=== PATIENT | male | born 1940 | race Caucasian/White ===

== ENCOUNTER 2018-02-04 16:37 | Inpatient (IN) | payer MEDICARE, OTHER ==
[~2018-02-04] VITALS: Ht 182.9 cm; Wt 76.2 kg
[~2018-02-04 16:37] MED LIST: AEC81 PO; ATOR20TA65 PO; CARV25TA PO; FURO40TA5 PO; LISI40TA4 PO; METF-444 PO; WARF-67 PO; WARF1TAB83 PO
[2018-02-04 17:20] LABS: BASOPHILS % (AUTO) 0.6 % (0.0-5.0); EOSINOPHILS % (AUTO) 0.5 % (0.0-8.0); HEMATOCRIT 33.2 % (42-54); LYMPHOCYTES % (AUTO) 30.1 % (21.0-51.0); MEAN CORPUSCULAR HEMOGLOBIN 34.8 pg (27.0-33.0); MEAN CORPUSCULAR HGB CONC 34.8 g/dL (32.0-36.0); MEAN CORPUSCULAR VOLUME 99.8 fL (79-99); MONOCYTES % (AUTO) 8.8 % (3.0-13.0); NUCLEATED RED BLOOD CELLS 0.1 % (0.0-0.19); PLATELET COUNT (AUTO) 120 K/uL (130-400); RED BLOOD CELL COUNT(AUTO) 3.33 MIL/uL (4.50-6.20); RED CELL DISTRIBUTION WIDTH 15.4 % (11.0-15.5); WHITE BLOOD COUNT (AUTO) 3.6 K/uL (4.8-10.8)
[2018-02-04 17:34] LABS: PARTIAL THROMBOPLASTIN TIME 38.8 SEC (26.3-35.5)
[2018-02-04 17:55] LABS: B-TYPE NATRIURETIC PEPTIDE 187 pg/mL (0-100)
[2018-02-04 18:06] LABS: CARBON DIOXIDE 22 mmol/L (21-32); CHLORIDE 94 mmol/L (101-111); CREATININE 1.4 mg/dL (0.5-1.5); GLOMERULAR FILTR. RATE CALC 52 mL/min (>60); GLUCOSE,RANDOM 117 mg/dL (70-105); POTASSIUM 4.5 mmol/L (3.5-5.1); SODIUM SERUM 126 mmol/L (136-145); UREA NITROGEN, BLOOD 13 mg/dL (7-18)
[2018-02-04 18:08] LABS: PROTHROMBIN TIME 38.7 SEC (9.6-11.6)
[2018-02-04 18:09] LABS: INR 3.78 (0.85-1.15)
[2018-02-04 18:10] LABS: ALANINE AMINOTRANSFERASE 154 U/L (12-78); ALBUMIN 2.4 g/dL (3.5-5.0); ASPARTATE AMINOTRANSFERASE 365 U/L (10-37); BILIRUBIN,TOTAL 1.6 mg/dL (0.2-1.0); CREATINE KINASE, TOTAL 88 U/L (21-232)
[2018-02-04 18:12] LABS: ALCOHOL, BLOOD < 3 mg/dL (0-10); LIPASE 34 U/L (114-286)
[2018-02-04 20:29] LABS: APPEARANCE,URINE Clear (CLEAR); BILIRUBIN,URINE Negative (NEGATIVE); COLOR,URINE Yellow (YELLOW); GLUCOSE, URINE (UA) Negative (NEGATIVE); KETONES,URINE 15 mg/dL (NEGATIVE); LEUKOCYTE ESTERASE ,URINE Negative (NEGATIVE); NITRATE,URINE Negative (NEGATIVE); OCCULT BLOOD,URINE Negative (NEGATIVE); PROTEIN,URINE Negative (NEGATIVE)
[2018-02-04 20:37] LABS: AMPHET/METH SCREEN,URINE NEGATIVE (NEGATIVE); BARBITURATE SCREEN, URINE NEGATIVE (NEGATIVE); BENZODIAZEPINES SCREEN,URINE NEGATIVE (NEGATIVE); CANNABINOID SCREEN,URINE NEGATIVE (NEGATIVE); COCAINE SCREEN,URINE NEGATIVE (NEGATIVE); OPIATE SCREEN,URINE NEGATIVE (NEGATIVE); PHENCYCLIDINE SCREEN,URINE NEGATIVE (NEGATIVE)
[2018-02-04] MEDS ORDERED: CARVEDILOL 25 MG TABLET PO SCH (21:00)
[2018-02-04] MEDS: FUROSEMIDE 40 MG TABLET PO SCH (21:00)
[2018-02-04] MEDS ORDERED: SODIUM CHLORIDE 0.9% 1000ML 1,000 ML IV ONE (21:20)
[2018-02-04] MEDS: CARVEDILOL 12.5 MG TABLET PO SCH (22:00)
[2018-02-05] VITALS (8 sets, daily range): BP systolic 80–132; BP diastolic 55–80
[2018-02-05] MEDS ORDERED: ONDANSETRON HCL 4 MG/2 ML VIAL IVP PRN (04:00)
[2018-02-05] MEDS: SODIUM CHLORIDE 0.9% 1000ML 1,000 ML IV SCH ×6 (04:00→20:30)
[2018-02-05] MEDS ORDERED: LIDOCAINE HCL-MPF 1% 2ML VIAL IVP PRN (05:00)
[2018-02-05] MEDS ORDERED: POTASSIUM CHLORIDE 10% ELIXIR 20 MEQ/15 ML UDCUP PO PRN (05:00)
[2018-02-05] MEDS ORDERED: POTASSIUM CHLORIDE 20MEQ/100ML 100 ML IV PRN (05:00)
[2018-02-05] MEDS: MAGNESIUM 2GM PREMIX 50ML 50 ML IV PRN (06:18)
[2018-02-05] MEDS: INSULIN HUMULIN R 100 UNIT/ML 3ML SQ SCH ×4 (06:46→21:00)
[2018-02-05] MEDS ORDERED: LISI-617 PO (07:35)
[2018-02-05] MEDS ORDERED: MAGN400C PO (07:36)
[2018-02-05] MEDS ORDERED: SPIR25TA6 PO (07:43)
[2018-02-05] MEDS ORDERED: CARV25TA PO (07:43)
[2018-02-05] MEDS ORDERED: CYAN-35 PO (07:45)
[2018-02-05] MEDS ORDERED: CALC600T12 PO (07:45)
[2018-02-05] MEDS: METFORMIN HCL 500 MG TABLET PO SCH ×2 (08:00→09:37)
[2018-02-05] MEDS: CARVEDILOL 12.5 MG TABLET PO SCH ×3 (09:00→23:43)
[2018-02-05] MEDS ORDERED: LISINOPRIL 40 MG TABLET PO SCH (09:00)
[2018-02-05] MEDS: FUROSEMIDE 40 MG TABLET PO SCH ×3 (09:00→23:44)
[2018-02-05] MEDS: ATORVASTATIN CALCIUM 20 MG TABLET PO SCH (09:37)
[2018-02-05] MEDS: LISINOPRIL 2.5 MG TABLET PO SCH (10:21)
[2018-02-05] MEDS: LORAZEPAM 2 MG/ML 1 ML VIAL IVP SCH (23:43)
[2018-02-06] VITALS (10 sets, daily range): BP systolic 67–121; BP diastolic 37–77
[2018-02-06] MEDS: SODIUM CHLORIDE 0.9% 1000ML 1,000 ML IV SCH ×2 (04:00→04:30)
[2018-02-06 05:29] LABS: HEMATOCRIT 33.7 % (42-54); MEAN CORPUSCULAR HEMOGLOBIN 34.9 pg (27.0-33.0); MEAN CORPUSCULAR HGB CONC 34.6 g/dL (32.0-36.0); MEAN CORPUSCULAR VOLUME 100.8 fL (79-99); PLATELET COUNT (AUTO) 85 K/uL (130-400); RED BLOOD CELL COUNT(AUTO) 3.35 MIL/uL (4.50-6.20); RED CELL DISTRIBUTION WIDTH 15.2 % (11.0-15.5); WHITE BLOOD COUNT (AUTO) 3.3 K/uL (4.8-10.8)
[2018-02-06 05:39] LABS: BASOPHILS % (MANUAL) 1 % (0-2); LYMPHOCYTES % (MANUAL) 32 % (22-44); MAN.DIFF COMMENT-IMPRESSION MANUAL DIFFERENTIAL; MONOCYTES % (MANUAL) 4 % (2-9); SEGMENTED NEUTROPHILS % 63 % (40-70)
[2018-02-06 05:40] LABS: PLATELET MORPHOLOGY COMMENT DECREASED
[2018-02-06 05:50] LABS: ALBUMIN 2.2 g/dL (3.5-5.0); BILIRUBIN,TOTAL 1.3 mg/dL (0.2-1.0); CREATININE 1.3 mg/dL (0.5-1.5); MAGNESIUM 1.3 mg/dL (1.80-2.40); POTASSIUM 3.8 mmol/L (3.5-5.1); T4 (THYROXINE) 7.7 mcg/dL (4.7-13.3); THYROID STIMULATING HORMONE 4.53 uIU/mL (0.36-3.74); TOTAL PROTEIN, SERUM 5.6 g/dL (6.0-8.3)
[2018-02-06] MEDS: INSULIN HUMULIN R 100 UNIT/ML 3ML SQ SCH ×4 (06:25→23:08)
[2018-02-06] MEDS: METFORMIN HCL 500 MG TABLET PO SCH ×2 (08:00→09:20)
[2018-02-06] MEDS: CARVEDILOL 12.5 MG TABLET PO SCH (09:20)
[2018-02-06] MEDS: LISINOPRIL 2.5 MG TABLET PO SCH (09:20)
[2018-02-06] MEDS: FUROSEMIDE 40 MG TABLET PO SCH (09:20)
[2018-02-06] MEDS: ATORVASTATIN CALCIUM 20 MG TABLET PO SCH (09:21)
[2018-02-06] MEDS: POTASSIUM CHLORIDE 20 MEQ ERTAB PO PRN ×2 (15:13→17:41)
[2018-02-06 15:25] LABS: TROPONIN I 0.08 ng/mL (0.00-0.06)
[2018-02-06] MEDS: MAGNESIUM 2GM PREMIX 50ML 50 ML IV PRN (19:01)
[2018-02-06] MEDS: MIRTAZAPINE 15 MG TABLET PO SCH (23:08)
[2018-02-06] MEDS: LORAZEPAM 2 MG/ML 1 ML VIAL IVP SCH (23:09)
[2018-02-07] VITALS (8 sets, daily range): BP systolic 83–118; BP diastolic 53–71
[2018-02-07 05:06] LABS: BASOPHILS % (AUTO) 0.7 % (0.0-5.0); EOSINOPHILS % (AUTO) 1.8 % (0.0-8.0); HEMATOCRIT 34.1 % (42-54); LYMPHOCYTES % (AUTO) 36.3 % (21.0-51.0); MEAN CORPUSCULAR HEMOGLOBIN 33.8 pg (27.0-33.0); MEAN CORPUSCULAR HGB CONC 33.7 g/dL (32.0-36.0); MEAN CORPUSCULAR VOLUME 100.3 fL (79-99); MONOCYTES % (AUTO) 9.3 % (3.0-13.0); NEUTROPHILS % (AUTO) 51.9 % (40.0-77.0); NUCLEATED RED BLOOD CELLS 0.1 % (0.0-0.19); PLATELET COUNT (AUTO) 62 K/uL (130-400); RED CELL DISTRIBUTION WIDTH 15.3 % (11.0-15.5); WHITE BLOOD COUNT (AUTO) 3.6 K/uL (4.8-10.8)
[2018-02-07 05:18] LABS: CREATININE 1.2 mg/dL (0.5-1.5); POTASSIUM 3.7 mmol/L (3.5-5.1)
[2018-02-07] MEDS: INSULIN HUMULIN R 100 UNIT/ML 3ML SQ SCH ×4 (06:26→21:00)
[2018-02-07] MEDS: SODIUM CHLORIDE 0.9% 1000ML 1,000 ML IV SCH ×2 (06:26→18:08)
[2018-02-07] MEDS: LISINOPRIL 2.5 MG TABLET PO SCH (09:54)
[2018-02-07] MEDS: ATORVASTATIN CALCIUM 20 MG TABLET PO SCH (09:54)
[2018-02-07] MEDS: SPIRONOLACTONE 25 MG TAB PO SCH (09:54)
[2018-02-07] MEDS: CARVEDILOL 6.25 MG TABLET PO SCH ×2 (09:54→22:37)
[2018-02-07] MEDS: FUROSEMIDE 20 MG TABLET PO SCH (09:54)
[2018-02-07] MEDS: MIRTAZAPINE 15 MG TABLET PO SCH (22:32)
[2018-02-07] MEDS: LORAZEPAM 2 MG/ML 1 ML VIAL IVP SCH (22:34)
[2018-02-08] VITALS (7 sets, daily range): BP systolic 69–115; BP diastolic 49–73
[2018-02-08] MEDS: SODIUM CHLORIDE 0.9% 1000ML 1,000 ML IV SCH ×2 (05:35→20:57)
[2018-02-08 05:59] LABS: BASOPHILS % (AUTO) 1.2 % (0.0-5.0); EOSINOPHILS % (AUTO) 2.6 % (0.0-8.0); HEMATOCRIT 33.4 % (42-54); LYMPHOCYTES % (AUTO) 38.1 % (21.0-51.0); MEAN CORPUSCULAR HEMOGLOBIN 34.6 pg (27.0-33.0); MEAN CORPUSCULAR HGB CONC 34.2 g/dL (32.0-36.0); MEAN CORPUSCULAR VOLUME 101.2 fL (79-99); MONOCYTES % (AUTO) 11.3 % (3.0-13.0); NEUTROPHILS % (AUTO) 46.8 % (40.0-77.0); NUCLEATED RED BLOOD CELLS 0.1 % (0.0-0.19); PLATELET COUNT (AUTO) 68 K/uL (130-400); RED CELL DISTRIBUTION WIDTH 15.2 % (11.0-15.5); WHITE BLOOD COUNT (AUTO) 3.4 K/uL (4.8-10.8)
[2018-02-08 06:12] LABS: CREATININE 1.3 mg/dL (0.5-1.5); POTASSIUM 3.5 mmol/L (3.5-5.1)
[2018-02-08] MEDS: INSULIN HUMULIN R 100 UNIT/ML 3ML SQ SCH ×4 (06:57→20:57)
[2018-02-08] MEDS: LISINOPRIL 2.5 MG TABLET PO SCH (09:28)
[2018-02-08] MEDS: SPIRONOLACTONE 25 MG TAB PO SCH (09:29)
[2018-02-08] MEDS: ATORVASTATIN CALCIUM 20 MG TABLET PO SCH (09:29)
[2018-02-08] MEDS: FUROSEMIDE 20 MG TABLET PO SCH (09:29)
[2018-02-08] MEDS: CARVEDILOL 6.25 MG TABLET PO SCH (09:30)
[2018-02-08] MEDS: LORAZEPAM 2 MG/ML 1 ML VIAL IVP SCH (20:56)
[2018-02-08] MEDS: MIRTAZAPINE 15 MG TABLET PO SCH (20:56)
[2018-02-09 03:22] VITALS: BP 124/75
[2018-02-09 05:23] LABS: BASOPHILS % (AUTO) 0.8 % (0.0-5.0); EOSINOPHILS % (AUTO) 2.7 % (0.0-8.0); HEMATOCRIT 35.1 % (42-54); LYMPHOCYTES % (AUTO) 37.1 % (21.0-51.0); MEAN CORPUSCULAR HEMOGLOBIN 33.8 pg (27.0-33.0); MEAN CORPUSCULAR HGB CONC 33.4 g/dL (32.0-36.0); MONOCYTES % (AUTO) 10.4 % (3.0-13.0); NUCLEATED RED BLOOD CELLS 0.1 % (0.0-0.19); PLATELET COUNT (AUTO) 66 K/uL (130-400); RED BLOOD CELL COUNT(AUTO) 3.48 MIL/uL (4.50-6.20); RED CELL DISTRIBUTION WIDTH 15.6 % (11.0-15.5); WHITE BLOOD COUNT (AUTO) 4.6 K/uL (4.8-10.8)
[2018-02-09 05:37] LABS: CREATININE 1.3 mg/dL (0.5-1.5); POTASSIUM 3.4 mmol/L (3.5-5.1)
[2018-02-09] MEDS: INSULIN HUMULIN R 100 UNIT/ML 3ML SQ SCH ×4 (06:06→21:00)
[2018-02-09 07:00] VITALS: BP 116/67
[2018-02-09] MEDS: ATORVASTATIN CALCIUM 20 MG TABLET PO SCH (08:37)
[2018-02-09] MEDS: SPIRONOLACTONE 25 MG TAB PO SCH (08:37)
[2018-02-09] MEDS: FUROSEMIDE 20 MG TABLET PO SCH (08:38)
[2018-02-09] MEDS: MAGNESIUM 2GM PREMIX 50ML 50 ML IV PRN (08:39)
[2018-02-09 09:27] LABS: INR 1.23 (0.85-1.15); PARTIAL THROMBOPLASTIN TIME 27.5 SEC (26.3-35.5); PROTHROMBIN TIME 12.9 SEC (9.6-11.6)
[2018-02-09] MEDS: SODIUM CHLORIDE 0.9% 1000ML 1,000 ML IV SCH ×2 (10:08→21:47)
[2018-02-09 11:24] VITALS: BP_SYST 107; BP_SYST 128; BP_SYST 94; BP_DIAS 58; BP_DIAS 72; BP_DIAS 75
[2018-02-09 13:32] LABS: CREATININE 1.2 mg/dL (0.5-1.5); MAGNESIUM 1.4 mg/dL (1.80-2.40); POTASSIUM 3.5 mmol/L (3.5-5.1)
[2018-02-09 15:00] VITALS: BP 113/90
[2018-02-09 19:11] VITALS: BP 114/64
[2018-02-09] MEDS: MIRTAZAPINE 15 MG TABLET PO SCH (21:47)
[2018-02-09] MEDS: LORAZEPAM 2 MG/ML 1 ML VIAL IVP SCH (21:48)
[2018-02-09 23:20] VITALS: BP_SYST 130; BP_SYST 131; BP_SYST 144; BP_DIAS 73; BP_DIAS 78; BP_DIAS 84
[2018-02-10 03:23] VITALS: BP 130/73
[2018-02-10] MEDS: INSULIN HUMULIN R 100 UNIT/ML 3ML SQ SCH ×4 (05:44→22:07)
[2018-02-10 05:48] LABS: BASOPHILS % (AUTO) 0.6 % (0.0-5.0); EOSINOPHILS % (AUTO) 3.3 % (0.0-8.0); LYMPHOCYTES % (AUTO) 36.3 % (21.0-51.0); MEAN CORPUSCULAR HEMOGLOBIN 34.4 pg (27.0-33.0); MEAN CORPUSCULAR HGB CONC 34.4 g/dL (32.0-36.0); MEAN CORPUSCULAR VOLUME 100.2 fL (79-99); MONOCYTES % (AUTO) 9.6 % (3.0-13.0); NEUTROPHILS % (AUTO) 50.2 % (40.0-77.0); PLATELET COUNT (AUTO) 98 K/uL (130-400); RED BLOOD CELL COUNT(AUTO) 3.49 MIL/uL (4.50-6.20); RED CELL DISTRIBUTION WIDTH 15.3 % (11.0-15.5); WHITE BLOOD COUNT (AUTO) 5.5 K/uL (4.8-10.8)
[2018-02-10 05:57] LABS: CREATININE 1.1 mg/dL (0.5-1.5); POTASSIUM 3.3 mmol/L (3.5-5.1)
[2018-02-10 07:59] VITALS: BP 130/76
[2018-02-10] MEDS: SPIRONOLACTONE 25 MG TAB PO SCH (09:15)
[2018-02-10] MEDS: FUROSEMIDE 20 MG TABLET PO SCH (09:15)
[2018-02-10] MEDS: ATORVASTATIN CALCIUM 20 MG TABLET PO SCH (09:15)
[2018-02-10 11:46] VITALS: BP 131/105
[2018-02-10] MEDS: SODIUM CHLORIDE 0.9% 1000ML 1,000 ML IV SCH ×2 (12:48→23:37)
[2018-02-10 16:00] VITALS: BP 101/59
[2018-02-10 21:05] VITALS: BP 101/56
[2018-02-10] MEDS: MIRTAZAPINE 15 MG TABLET PO SCH (21:51)
[2018-02-10] MEDS: LORAZEPAM 2 MG/ML 1 ML VIAL IVP SCH (21:55)
[2018-02-11] VITALS: BP 133/75
[2018-02-11] MEDS ORDERED: DEXTROSE 50%-WATER 50 ML DISP.SYRIN IV ONE (01:43)
[2018-02-11] MEDS: INSULIN HUMULIN R 100 UNIT/ML 3ML SQ SCH ×2 (06:56→11:30)
[2018-02-11 08:00] VITALS: BP 134/72
[2018-02-11] MEDS: FUROSEMIDE 20 MG TABLET PO SCH (08:53)
[2018-02-11] MEDS: ATORVASTATIN CALCIUM 20 MG TABLET PO SCH (08:53)
[2018-02-11] MEDS: SPIRONOLACTONE 25 MG TAB PO SCH (08:53)
[2018-02-11 12:00] VITALS: BP 113/71
[2018-02-11 16:00] VITALS: BP 102/58
[2018-02-11] MEDS ORDERED: FURO20TA6 PO (16:39)
[2018-02-11] MEDS ORDERED: CARV6.2579 PO (16:39)
[2018-02-11] MEDS ORDERED: SPIR25TA PO (16:39)
== END 2018-02-11 18:53 | disposition home or self-care (01) | DRG 312 ==
LOC: EDH 16:37 → EDHIP 19:30 → 4AH 02-05 02:48 → 3AH 02-05 20:42
PROVIDERS: ADMIT Hospitalist; ATTEND Hospitalist
DX: I95.1 Orthostatic hypotension (principal); E87.1 Hypo-osmolality and hyponatremia; I50.22 Chronic systolic (congestive) heart failure; E44.1 Mild protein-calorie malnutrition; I44.2 Atrioventricular block, complete; R29.6 Repeated falls; I48.2 Chronic atrial fibrillation; E83.42 Hypomagnesemia; E11.65 Type 2 diabetes mellitus with hyperglycemia; I25.10 Atherosclerotic heart disease of native coronary artery without angina pectoris; I11.0 Hypertensive heart disease with heart failure; M48.061 Spinal stenosis, lumbar region without neurogenic claudication; R00.1 Bradycardia, unspecified; Z66 Do not resuscitate; E87.6 Hypokalemia; G31.9 Degenerative disease of nervous system, unspecified; I25.5 Ischemic cardiomyopathy; N28.1 Cyst of kidney, acquired; Z60.2 Problems related to living alone; Z68.22 Body mass index [BMI] 22.0-22.9, adult; Z79.01 Long term (current) use of anticoagulants; Z95.5 Presence of coronary angioplasty implant and graft; Z95.0 Presence of cardiac pacemaker; Z82.5 Family history of asthma and other chronic lower respiratory diseases; Z82.0 Family history of epilepsy and other diseases of the nervous system
CPT/HCPCS: 36415; 70450; 71045; 76705; 80048; 80053; 80305; 81003; 82270; 82550; 82607; 82947; 82948; 83690; 83735; 83874; 83880; 84436; 84443; 84480; 84484; 85025; 85610; 85730; 93005; 93306; 97039; G0480; J1815; J2060; J2405; J3475; J7030; J7070

== ENCOUNTER 2018-12-07 20:11 | Inpatient (IN) | payer OTHER ==
[~2018-12-07] VITALS: Ht 180.3 cm; Wt 67.6 kg
[~2018-12-07 20:11] MED LIST changes: +APIX5TAB PO; +CALC600T12 PO; +CARV12.511 PO; -CARV25TA PO; +CARV6.2579 PO; +CYAN-35 PO; +FURO20TA6 PO; +LEVO500T89 PO; +LISI2.5T2 PO; -LISI40TA4 PO; +MAGN400C PO; +SPIR25TA PO; +SPIR25TA6 PO; -WARF-67 PO; -WARF1TAB83 PO
[2018-12-07 20:35] LABS: BASOPHILS % (AUTO) 0.4 % (0.0-5.0); EOSINOPHILS % (AUTO) 0.1 % (0.0-8.0); HEMATOCRIT 36.3 % (42-54); LYMPHOCYTES % (AUTO) 15.6 % (21.0-51.0); MEAN CORPUSCULAR HEMOGLOBIN 33.2 pg (27.0-33.0); MEAN CORPUSCULAR HGB CONC 35.1 g/dL (32.0-36.0); MEAN CORPUSCULAR VOLUME 94.8 fL (79-99); MONOCYTES % (AUTO) 7.2 % (3.0-13.0); NEUTROPHILS % (AUTO) 76.7 % (40.0-77.0); PLATELET COUNT (AUTO) 130 K/uL (130-400); RED BLOOD CELL COUNT(AUTO) 3.83 MIL/uL (4.50-6.20); WHITE BLOOD COUNT (AUTO) 10.1 K/uL (4.8-10.8)
[2018-12-07 20:50] LABS: B-TYPE NATRIURETIC PEPTIDE 107 pg/mL (0-100)
[2018-12-07 21:11] LABS: ALBUMIN 3.2 g/dL (3.5-5.0); BILIRUBIN,TOTAL 1.3 mg/dL (0.2-1.0); CREATININE 2.1 mg/dL (0.5-1.5); POTASSIUM 5.7 mmol/L (3.5-5.1); TOTAL PROTEIN, SERUM 7.2 g/dL (6.0-8.3)
[2018-12-07] MEDS ORDERED: SODIUM CHLORIDE 0.9% 1000ML 1,000 ML IV ONE (21:27)
[2018-12-07] MEDS ORDERED: M.V.I. IV [ADULT] 10 ML, THIAMINE HCL 100 MG, FOLIC ACID 1 MG in SODIUM CHLORIDE 0.9% 1... IV SCH (21:49)
[2018-12-07 21:57] LABS: ABG BASE EXCESS -9.6 mmol/L (-2.0-3.0); ABG HCO3 12.8 mmol/L (21.0-28.0); ABG OXYGEN SATURATION 98.1 % (95.0-99.0); ABG PCO2 21 mmHg (35-48)
[2018-12-07 23:13] LABS: APPEARANCE,URINE Cloudy (CLEAR); BILIRUBIN,URINE Negative (NEGATIVE); COLOR,URINE Yellow (YELLOW); GLUCOSE, URINE (UA) Negative (NEGATIVE); KETONES,URINE Trace mg/dL (NEGATIVE); LEUKOCYTE ESTERASE ,URINE Large (NEGATIVE); NITRATE,URINE Negative (NEGATIVE); OCCULT BLOOD,URINE Small (NEGATIVE); PH,URINE 5.5 (5.0-8.0); PROTEIN,URINE Negative (NEGATIVE)
[2018-12-07 23:22] LABS: BACTERIA,URINE Many /HPF (None Seen); MUCUS,URINE Rare LPF (None Seen); SQUAMOUS EPITHELIAL CELL,UR None Seen /HPF (0-2)
[2018-12-07] MEDS ORDERED: CEFTRIAXONE SODIUM 1 GM ONE (23:52)
[2018-12-07 23:54] LABS: AMPHET/METH SCREEN,URINE NEGATIVE (NEGATIVE); BARBITURATE SCREEN, URINE NEGATIVE (NEGATIVE); BENZODIAZEPINES SCREEN,URINE NEGATIVE (NEGATIVE); CANNABINOID SCREEN,URINE NEGATIVE (NEGATIVE); COCAINE SCREEN,URINE NEGATIVE (NEGATIVE); OPIATE SCREEN,URINE NEGATIVE (NEGATIVE); PHENCYCLIDINE SCREEN,URINE NEGATIVE (NEGATIVE)
[2018-12-08] VITALS (7 sets, daily range): BP systolic 82–144; BP diastolic 47–71
[2018-12-08] MEDS ORDERED: SODIUM CHLORIDE 0.9% 1000ML 1,000 ML IV SCH (00:36)
[2018-12-08] MEDS: CEFTRIAXONE SODIUM 2 GM VIAL IVP SCH (00:45)
[2018-12-08] MEDS ORDERED: NEOMY SULF/BACITRA/POLYMYXIN B 1 EACH PACKET TP ONE (01:21)
[2018-12-08 02:07] LABS: HEMOGLOBIN A1C 5.4 % (4.0-6.0)
[2018-12-08] MEDS ORDERED: MULT1CAP32 PO (02:31)
[2018-12-08] MEDS ORDERED: VITA1CAP PO (02:31)
[2018-12-08] MEDS ORDERED: ERGO500014 PO (02:34)
[2018-12-08 02:51] LABS: % IRON SATURATION 68.3 % (30-44)
[2018-12-08] MEDS: FAMOTIDINE 20MG TAB 20 MG TAB PO SCH (08:46)
[2018-12-08] MEDS: ENOXAPARIN SODIUM 30 MG/0.3 ML SQ SCH ×2 (08:49→14:23)
[2018-12-08] MEDS ORDERED: FAMOTIDINE/PF 20 MG/2 ML VIAL IV SCH (09:00)
[2018-12-08] MEDS ORDERED: LORAZEPAM 2 MG/ML 1 ML VIAL IVP PRN (09:15)
[2018-12-08] MEDS ORDERED: MAGNESIUM SULFATE 1 GM in SODIUM CHLORIDE 0.9% 50 ML IV PRN ×2 (09:15→16:30)
[2018-12-08 09:51] LABS: BASOPHILS % (AUTO) 0.8 % (0.0-5.0); EOSINOPHILS % (AUTO) 0.1 % (0.0-8.0); HEMATOCRIT 32.4 % (42-54); MEAN CORPUSCULAR HEMOGLOBIN 33.2 pg (27.0-33.0); MEAN CORPUSCULAR HGB CONC 35.3 g/dL (32.0-36.0); MONOCYTES % (AUTO) 11.4 % (3.0-13.0); NEUTROPHILS % (AUTO) 72.7 % (40.0-77.0); PLATELET COUNT (AUTO) 104 K/uL (130-400); RED BLOOD CELL COUNT(AUTO) 3.45 MIL/uL (4.50-6.20); RED CELL DISTRIBUTION WIDTH 14.6 % (11.0-15.5); WHITE BLOOD COUNT (AUTO) 6.6 K/uL (4.8-10.8)
[2018-12-08] MEDS: AZITHROMYCIN 500MG+NS 250ML 250 ML IV SCH (10:16)
[2018-12-08 10:21] LABS: CREATININE 1.6 mg/dL (0.5-1.5); POTASSIUM 4.5 mmol/L (3.5-5.1)
[2018-12-08] MEDS: INSULIN HUMULIN R 100 UNIT/ML 3ML SQ SCH ×3 (11:30→21:00)
--- NOTE | 2018-12-08 12:48 | NUR ---
[facility] CONSULT PATIENT ASSESSED REQUESTED: PATIENT PRESENTS WITH TRAUMA WOUND TO BILATERAL ELBOWS AND STAGE I PRESSURE ULCER TO COCCYX; [facility] RECOMMENDATIONS SUBMITTED. Addendum: 12/08/18 at 1250 by DIA MAGAÑA LVN LVN W Amended: Links added.
--- NOTE | 2018-12-08 13:18 | NUR ---
DC PLAN PATIENT LIVES ALONE. PATIENT HAS [facility] FOR ADL'S AND FOR HOUSE CLEANING. PATIENT GOES TO THE [facility] FOR MD AND MEDICATIONS. NO DME. WOULD LIKE TO GO HOME. GENIE WILL CONTINUE TO FOLLOW. Addendum: 12/08/18 at 1320 by FARTUN HANSEN RN CM Amended: Links added.
[2018-12-08] MEDS ORDERED: CHLORDIAZEPOXIDE HCL 25 MG CAP PO SCH (14:00)
--- NOTE | 2018-12-08 14:18 | NUR ---
RD NOTIFICATION Primary Diagnosis: S/P Fall Injury, Metabolic acidosis, Hypernatremia. Hx: Afib, DM, HypoTN, Cardiac pacemaker. Current diet: Heart Healthy. LBM: 12/08. Meds: Pepcid, Multivitamin, Lovenox, Rocephin. Labs: PCO2 21, HCO3 12.8, + 54 Serum Alcohol, Lactic acid 6.5, Mg 1.4, Na 113, K 5.7, Cl 77, Cre kinase 1466 , BUN 44, CRE 2.1, GFR 33. Skin: no edema, skin intact. PO 100%. Appetite is good as per pt. Pt cooks for himself at home and has a girlfriend who also cooks for him and takes him food. Pt states he has no difficulty chewing or swallowing. RD recommends to continue current diet. RD will continue to monitor and follow up as needed. Please notify RD if any other nutritional concerns arise, Thank you. Addendum: 12/08/18 at [address] RD Amended: Links added.
[2018-12-08] MEDS: HONEY 1 APPL/ML TUBE TP SCH (20:00)
[2018-12-08] MEDS: ZINC OXIDE OINT 56.7 GM TP SCH (21:00)
--- NOTE | 2018-12-08 21:00 | NUR ---
TUBER OPERATOR Rosalia notified about pt.'s BP .Pt. is alert and oriented,denies any discomfort .He appears asymptomatic.
[2018-12-09] MEDS: CEFTRIAXONE SODIUM 2 GM VIAL IVP SCH (00:38)
--- NOTE | 2018-12-09 01:00 | NUR ---
RERE Lindsey notified of pt serum Na 119 and SBP in the 80's.Received new order.Pt. remained alert and oriented ,asymptomatic.Pt. denies any discomfort.
[2018-12-09] MEDS: SODIUM CHLORIDE 0.9% 1000ML 1,000 ML IV SCH ×2 (01:15→23:32)
[2018-12-09] MEDS ORDERED: SODIUM CHLORIDE 0.9% 1000ML 1,000 ML IV ONE (01:27)
[2018-12-09 04:15] VITALS: BP 86/50
[2018-12-09 05:06] LABS: BASOPHILS % (AUTO) 0.1 % (0.0-5.0); HEMATOCRIT 29.5 % (42-54); LYMPHOCYTES % (AUTO) 2.5 % (21.0-51.0); MEAN CORPUSCULAR HEMOGLOBIN 32.8 pg (27.0-33.0); MEAN CORPUSCULAR HGB CONC 34.7 g/dL (32.0-36.0); MEAN CORPUSCULAR VOLUME 94.5 fL (79-99); MONOCYTES % (AUTO) 6.2 % (3.0-13.0); NEUTROPHILS % (AUTO) 91.2 % (40.0-77.0); PLATELET COUNT (AUTO) 76 K/uL (130-400); RED BLOOD CELL COUNT(AUTO) 3.13 MIL/uL (4.50-6.20); RED CELL DISTRIBUTION WIDTH 14.2 % (11.0-15.5)
[2018-12-09 05:31] LABS: CREATININE 1.5 mg/dL (0.5-1.5); MAGNESIUM 1.4 mg/dL (1.80-2.40); POTASSIUM 4.1 mmol/L (3.5-5.1)
[2018-12-09] MEDS: INSULIN HUMULIN R 100 UNIT/ML 3ML SQ SCH ×4 (05:52→20:33)
[2018-12-09] MEDS ORDERED: MAGNESIUM 2GM PREMIX 50ML 50 ML IV ONE (06:20)
[2018-12-09] MEDS: HONEY 1 APPL/ML TUBE TP SCH ×2 (07:30→20:20)
--- NOTE | 2018-12-09 07:31 | NUR ---
dRESSING TO RIGHT ARM DONE MEDIHONEY APPLIED .pT. TOLERATED PROCEDURE WELL.
[2018-12-09] MEDS ORDERED: CEFTRIAXONE SODIUM 1 GM IVP SCH (07:45)
[2018-12-09 07:53] VITALS: BP 103/58
--- NOTE | 2018-12-09 08:45 | NUR ---
AM ASSESSMENT PT SITTING IN BED, WATCHING TV. OTO[place]. A/O X 3. NO SOB. NO DISTRESS NOTED. DENIES CHEST PAIN OR DISCOMFORT. DENIES PALPITATIONS. TELE: PACED. DENIES N/V AND/OR DIARRHEA. 0.9% NACL INFUSING @ 75 ML/HR. BEDREST. INSTRUCTED TO CALL FOR ASSISTANCE. CALL LJ W/IN REACH.
--- NOTE | 2018-12-09 08:45 | NUR ---
CARDIOLOGY DR WORRELL'S OFFICE NOTIFIED OF CARDIOLOGY CONSULT, 12/08/18. THIS AM PT CALLING DR WORRELL'S OFFICE, PT ATTEMPTING TO CX APPT W/DR CANELA FOR TOMORROW.
[2018-12-09] MEDS ORDERED: M.V.I. IV [ADULT] 10 ML, FOLIC ACID 1 MG, THIAMINE HCL 100 MG in SODIUM CHLORIDE 0.9% 1... IV SCH (09:00)
[2018-12-09] MEDS ORDERED: MIDODRINE HCL 5 MG TABLET PO SCH (09:00)
[2018-12-09] MEDS: FAMOTIDINE 20MG TAB 20 MG TAB PO SCH (09:04)
[2018-12-09] MEDS: ENOXAPARIN SODIUM 30 MG/0.3 ML SQ SCH (09:04)
[2018-12-09] MEDS: ZINC OXIDE OINT 56.7 GM TP SCH ×2 (09:05→20:21)
[2018-12-09] MEDS: AZITHROMYCIN 500MG+NS 250ML 250 ML IV SCH (09:05)
[2018-12-09 12:19] VITALS: BP 90/55
--- NOTE | 2018-12-09 14:00 | NUR ---
DSG CHANGE DSG CHANGE TO BILATERAL ELBOWS DONE @ THIS TIME. JUVENAL FLORES, 4X4s, KERLIX APPLIED TO BOTH ELBOWS. PT TOLERATED WELL.
[2018-12-09] MEDS: MIDODRINE HCL 5 MG TABLET PO SCH ×2 (14:05→20:21)
[2018-12-09 15:51] VITALS: BP 97/59
[2018-12-09 19:31] VITALS: BP 91/53
[2018-12-09] MEDS: CEFTRIAXONE SODIUM 1 GM IVP SCH (23:26)
[2018-12-09 23:38] VITALS: BP 107/54
[2018-12-10] MEDS: SODIUM CHLORIDE 0.9% 1000ML 1,000 ML IV SCH ×2 (03:55→16:37)
[2018-12-10 04:00] VITALS: BP 103/54
[2018-12-10 04:38] LABS: HEMATOCRIT 30.7 % (42-54); MEAN CORPUSCULAR HEMOGLOBIN 33.2 pg (27.0-33.0); MEAN CORPUSCULAR HGB CONC 34.8 g/dL (32.0-36.0); MEAN CORPUSCULAR VOLUME 95.3 fL (79-99); PLATELET COUNT (AUTO) 71 K/uL (130-400); RED BLOOD CELL COUNT(AUTO) 3.22 MIL/uL (4.50-6.20); RED CELL DISTRIBUTION WIDTH 14.5 % (11.0-15.5)
[2018-12-10 05:06] LABS: CREATININE 1.1 mg/dL (0.5-1.5); POTASSIUM 3.8 mmol/L (3.5-5.1)
[2018-12-10] MEDS: INSULIN HUMULIN R 100 UNIT/ML 3ML SQ SCH ×4 (06:07→21:00)
--- NOTE | 2018-12-10 07:28 | NUR ---
has not come by to see the pt.Endorsed to incoming NOD to follow up today.Pt. remained stable.
[2018-12-10 07:39] VITALS: BP 120/66
[2018-12-10] MEDS: AZITHROMYCIN 500MG+NS 250ML 250 ML IV SCH (08:43)
[2018-12-10] MEDS: MIDODRINE HCL 5 MG TABLET PO SCH ×3 (08:43→20:03)
[2018-12-10] MEDS: FAMOTIDINE 20MG TAB 20 MG TAB PO SCH (08:44)
[2018-12-10] MEDS: ZINC OXIDE OINT 56.7 GM TP SCH ×2 (08:44→20:03)
--- NOTE | 2018-12-10 10:05 | NUR ---
PT NOTE: PATIENT PERFORMED SIT-STAND + TRANSITION STEPS TO HOB /C MIN ASSISTX1 REQUIRING PERINATAL NURSE FOR SAFETY. 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 PATIENT ABLE TO ASSUME STATIC SITTING AT EOB /C SBA X1 REQUIRING VC'S ONLY. PATIENT PRESENTS WITH 3/5 STRENGTH TO BLE QUADS AND IS ABLE TO PERFORM SIT-STAND WITH HAND HELD MIN ASSIST FOR SAFETY. PATIENT IS UNSTEADY WITH STEPS BUT IS ABLE TO SIDE-STEP NEEDED TO PARTICIPATE IN PT TX. PATIENT WILL BENEFIT FROM CONTINUED PT TX TO ADDRESS POOR LE STRENGTH AND POOR QUALITY OF TRANSFERS TO AVOID RISK OF FALLS. Addendum: 12/10/18 at 1054 by KEVIN ABDALLA PT Amended: Links added.
[2018-12-10 11:03] VITALS: BP 104/64
--- NOTE | 2018-12-10 14:41 | NUR ---
DC PLAN VISITED WITH PATIENT. SPENT 1HR DISCUSSING DC PLAN. PATIENT HAS MANY CONCERNS AND MANY REASONS WHY NOTHING CAN BE DONE. DOES NOT WANT TO GO TO FACILITY. SAID R[place] GET MEDICAID GETS TO MUCH MONEY A MONTH. SAYS RODOLFO GO A RIGGING HELPER PATIENT BECAUSE HE HAS BILLS TO PAY. CAN NOT GO TO A FACILITY HE KNOWS NOTHING ABOUT. SAYS HE DOES HAVE MEDICARE. WANTS TO GO HOME WITH HOSPICE. TOLD HIM MD DID NOT SEE HOSPICE BUT WOULD LET HIM KNOW. LET DR. MORALES KNOW GOT ORDER FOR HOSPICE. DIRECTOR SPEECH LANGUAGE WENT TO TALK TO PATIENT SAID CAN NOT SIGN FOR HOSPICE BECAUSE DR. MORALES HAS NOT TOLD HIM WHY HE COULD NOT HAVE A SURGERY. DR. MORALES SAID HE DID NOT SAY THAT PATIENT WAS THE ONE THAT TOLD HIM A BACK DOCTOR HAD TOLD HIM HE DID NOT QUALIFY FOR SURGERY AND THAT PT WAS POINTLESS. LOOKED IN SYSTEM TO SEE IF THERE IS ANY RECORD OF BACK IMAGING PATIENT SAID THAT HAD BEEN DONE HERE. NO IMAGES. ORDER FOR CT OF LUMBAR AND THORACIC SO THAT DR. THAYER CAN SEE THEM AND SEE IF THERE IS SOMETHING THERE AND IF SOMETHING CAN BE DONE OR NOTHING. FAR THE HOSPICE HE DOES NOT THINK PATIENT HAS A DIAGNOSIS FOR HOSPICE OR THAT HE IS TERMINAL. Addendum: 12/10/18 at 1449 by FARTUN HANSEN RN CM Amended: Links added.
[2018-12-10 19:33] VITALS: BP 106/65
[2018-12-10] MEDS: HONEY 1 APPL/ML TUBE TP SCH (20:03)
[2018-12-10] MEDS: CEFTRIAXONE SODIUM 1 GM IVP SCH (20:04)
[2018-12-10] MEDS: ENOXAPARIN SODIUM 30 MG/0.3 ML SQ SCH (21:00)
[2018-12-11 00:16] VITALS: BP 120/71
[2018-12-11 04:20] LABS: BASOPHILS % (AUTO) 0.2 % (0.0-5.0); EOSINOPHILS % (AUTO) 1.2 % (0.0-8.0); HEMATOCRIT 29.6 % (42-54); LYMPHOCYTES % (AUTO) 20.5 % (21.0-51.0); MEAN CORPUSCULAR HEMOGLOBIN 33.3 pg (27.0-33.0); MEAN CORPUSCULAR HGB CONC 34.2 g/dL (32.0-36.0); MEAN CORPUSCULAR VOLUME 97.3 fL (79-99); NEUTROPHILS % (AUTO) 65.1 % (40.0-77.0); PLATELET COUNT (AUTO) 70 K/uL (130-400); RED BLOOD CELL COUNT(AUTO) 3.05 MIL/uL (4.50-6.20); RED CELL DISTRIBUTION WIDTH 14.3 % (11.0-15.5); WHITE BLOOD COUNT (AUTO) 7.1 K/uL (4.8-10.8)
[2018-12-11 04:33] LABS: POTASSIUM 3.9 mmol/L (3.5-5.1)
[2018-12-11 04:48] VITALS: BP 111/72
[2018-12-11] MEDS: INSULIN HUMULIN R 100 UNIT/ML 3ML SQ SCH ×4 (05:55→20:46)
[2018-12-11] MEDS: SODIUM CHLORIDE 0.9% 1000ML 1,000 ML IV SCH ×3 (06:26→21:48)
[2018-12-11 07:25] VITALS: BP 110/70
[2018-12-11] MEDS: FAMOTIDINE 20MG TAB 20 MG TAB PO SCH (09:47)
[2018-12-11] MEDS: ZINC OXIDE OINT 56.7 GM TP SCH ×2 (09:47→20:08)
[2018-12-11] MEDS: THIAMINE HCL 100 MG TABLET PO SCH (09:47)
[2018-12-11] MEDS: MULTIVITAMINS W-IRON 50 ML DROPS PO SCH (09:47)
[2018-12-11] MEDS: MIDODRINE HCL 5 MG TABLET PO SCH ×3 (09:47→20:09)
[2018-12-11] MEDS: FOLIC ACID 1 MG TABLET PO SCH (09:47)
[2018-12-11] MEDS: AZITHROMYCIN 500MG+NS 250ML 250 ML IV SCH (09:47)
[2018-12-11 11:30] VITALS: BP 99/65
[2018-12-11] MEDS: SODIUM CHLORIDE 1,000 MG TAB PO SCH (13:03)
--- NOTE | 2018-12-11 13:20 | NUR ---
WOUND CARE DONE TO BILATERAL ELBOW SKIN TEARS ORDERED. PATIENT TOLERATED DRESSING CHANGE.
[2018-12-11 15:30] VITALS: BP 107/67
[2018-12-11 19:53] VITALS: BP 118/68
[2018-12-11] MEDS: HONEY 1 APPL/ML TUBE TP SCH (20:08)
[2018-12-11] MEDS: ENOXAPARIN SODIUM 30 MG/0.3 ML SQ SCH (20:09)
[2018-12-11] MEDS: CEFTRIAXONE SODIUM 1 GM IVP SCH (21:46)
[2018-12-12] VITALS (7 sets, daily range): BP systolic 118–128; BP diastolic 64–76
--- NOTE | 2018-12-12 | NUR ---
PT HAS BEEN STABLE. HAD A BOWEL MOVEMENT IN THE EVENING. ABLE TO USE URINAL. PT STATES NO PAIN. NO DISTRESS NOTED. PT CONTINUES ON ROCEPHIN IV. STATES PAIN WHEN URINATING. ABLE TO ASSIST WITH BEDPAN. WOUND CARE COMPLETED BY ASHANTI JACKSON.
[2018-12-12 04:19] LABS: HEMATOCRIT 29.4 % (42-54); MEAN CORPUSCULAR HEMOGLOBIN 33.4 pg (27.0-33.0); MEAN CORPUSCULAR HGB CONC 34.8 g/dL (32.0-36.0); MEAN CORPUSCULAR VOLUME 96.1 fL (79-99); PLATELET COUNT (AUTO) 88 K/uL (130-400); RED BLOOD CELL COUNT(AUTO) 3.06 MIL/uL (4.50-6.20); RED CELL DISTRIBUTION WIDTH 14.5 % (11.0-15.5); WHITE BLOOD COUNT (AUTO) 5.8 K/uL (4.8-10.8)
[2018-12-12 04:31] LABS: ALBUMIN 2.3 g/dL (3.5-5.0); BILIRUBIN,TOTAL 0.5 mg/dL (0.2-1.0); MAGNESIUM 1.2 mg/dL (1.80-2.40); PHOSPHORUS 1.8 mg/dL (2.5-4.9); POTASSIUM 3.8 mmol/L (3.5-5.1); TOTAL PROTEIN, SERUM 5.7 g/dL (6.0-8.3)
[2018-12-12] MEDS ORDERED: MAGNESIUM 2GM PREMIX 50ML 50 ML IV ONE (06:09)
[2018-12-12] MEDS ORDERED: MAGNESIUM 2GM PREMIX 50ML 50 ML IV PRN (06:15)
[2018-12-12] MEDS: INSULIN HUMULIN R 100 UNIT/ML 3ML SQ SCH ×4 (06:24→20:48)
[2018-12-12] MEDS: FOLIC ACID 1 MG TABLET PO SCH (10:03)
[2018-12-12] MEDS: MIDODRINE HCL 5 MG TABLET PO SCH ×3 (10:03→21:29)
[2018-12-12] MEDS: FAMOTIDINE 20MG TAB 20 MG TAB PO SCH (10:03)
[2018-12-12] MEDS: SODIUM CHLORIDE 1,000 MG TAB PO SCH (10:03)
[2018-12-12] MEDS: THIAMINE HCL 100 MG TABLET PO SCH (10:03)
[2018-12-12] MEDS: ZINC OXIDE OINT 56.7 GM TP SCH ×2 (14:44→21:42)
[2018-12-12] MEDS: MULTIVITAMINS W-IRON 50 ML DROPS PO SCH (14:45)
--- NOTE | 2018-12-12 15:00 | NUR ---
DR. MORALES IS MAKING HIS ROUNDS.
--- NOTE | 2018-12-12 15:24 | NUR ---
DRESSING CHANGE DONE ORDERED. PATIENT TOLERATED PROCEDURE WELL.
[2018-12-12] MEDS: MEGESTROL 400 MG/10 ML UDCUP PO SCH (18:15)
--- NOTE | 2018-12-12 18:45 | NUR ---
REFERRAL TO [facility]CD ORDER EARLIER TODAY FOR [facility] FOR PATIENT FOR ALCHOLIC NEUROPATHY, MD FEELS WILL IMPROIVE WITH NUTRITION AND PHYSICAL THERAPY. VERBAL BASSEM/CHOICE AND REFERRAL PKT SENT W CONFIRMATION REC'D
[2018-12-12] MEDS: ENOXAPARIN SODIUM 30 MG/0.3 ML SQ SCH (21:00)
[2018-12-12] MEDS: CEFTRIAXONE SODIUM 1 GM IVP SCH (21:30)
[2018-12-12] MEDS: HONEY 1 APPL/ML TUBE TP SCH (21:41)
[2018-12-13 03:15] VITALS: BP 123/72
[2018-12-13 04:35] LABS: BASOPHILS % (AUTO) 0.5 % (0.0-5.0); EOSINOPHILS % (AUTO) 2.2 % (0.0-8.0); HEMATOCRIT 30.4 % (42-54); LYMPHOCYTES % (AUTO) 21.5 % (21.0-51.0); MEAN CORPUSCULAR HGB CONC 33.9 g/dL (32.0-36.0); MEAN CORPUSCULAR VOLUME 97.6 fL (79-99); MONOCYTES % (AUTO) 15.3 % (3.0-13.0); NEUTROPHILS % (AUTO) 60.5 % (40.0-77.0); PLATELET COUNT (AUTO) 95 K/uL (130-400); RED BLOOD CELL COUNT(AUTO) 3.11 MIL/uL (4.50-6.20); RED CELL DISTRIBUTION WIDTH 14.3 % (11.0-15.5); WHITE BLOOD COUNT (AUTO) 6.5 K/uL (4.8-10.8)
[2018-12-13 04:51] LABS: ALBUMIN 2.1 g/dL (3.5-5.0); BILIRUBIN,TOTAL 0.4 mg/dL (0.2-1.0); CREATININE 0.9 mg/dL (0.5-1.5); MAGNESIUM 3.2 mg/dL (1.80-2.40); POTASSIUM 3.7 mmol/L (3.5-5.1); TOTAL PROTEIN, SERUM 5.3 g/dL (6.0-8.3)
[2018-12-13 04:52] LABS: INR 1.05 (0.85-1.15); PARTIAL THROMBOPLASTIN TIME 27.4 SEC (26.3-35.5)
[2018-12-13] MEDS: INSULIN HUMULIN R 100 UNIT/ML 3ML SQ SCH ×4 (07:30→21:00)
[2018-12-13 08:33] VITALS: BP 121/72
[2018-12-13] MEDS: MULTIVITAMINS W-IRON 50 ML DROPS PO SCH (09:00)
[2018-12-13] MEDS: MEGESTROL 400 MG/10 ML UDCUP PO SCH ×2 (09:00)
--- NOTE | 2018-12-13 09:10 | NUR ---
PT NOTE: PATIENT PERFORMED SIT-STAND X2 REPS + SEATED ACTIVE LE EX'S. UPON STANDING PATIENT PRESENTS WITH POOR BALANCE, PATIENT REQUIRES MIN ASSIST X2 FOR SAFETY TO PERFORM TRANSITION STEPS. PATIENT WILL BENEFIT FROM CONTINUED THERAPY TO PROMOTE SAFER SIT-STAND TRANSFERS OOB WITH DECREASED RISK FOR FALLS. Addendum: 12/13/18 at 1346 by KEVIN ABDALLA PT Amended: Links added.
[2018-12-13] MEDS: THIAMINE HCL 100 MG TABLET PO SCH (10:42)
[2018-12-13] MEDS: SODIUM CHLORIDE 1,000 MG TAB PO SCH (10:42)
[2018-12-13] MEDS: FOLIC ACID 1 MG TABLET PO SCH (10:42)
[2018-12-13] MEDS: FAMOTIDINE 20MG TAB 20 MG TAB PO SCH (10:43)
[2018-12-13] MEDS: MIDODRINE HCL 5 MG TABLET PO SCH ×3 (10:43→23:21)
[2018-12-13] MEDS: ZINC OXIDE OINT 56.7 GM TP SCH ×2 (10:45→23:27)
[2018-12-13 11:41] VITALS: BP 130/78
[2018-12-13 16:17] VITALS: BP 125/75
[2018-12-13 19:17] VITALS: BP 105/58
[2018-12-13] MEDS: ENOXAPARIN SODIUM 30 MG/0.3 ML SQ SCH (21:00)
--- NOTE | 2018-12-13 22:40 | NUR ---
NOTE CONTACTED Aleja MURO MAINTENANCE MACHINIST AND NOTIFED OF PLATELET 95 TODAY 88 YESTERDAY. PATIENT HAS CURRENT ORDERS FOR LOVENOX. REVIEWED OTHER LABS WITH HER. RECEIVED ORDERS TO HOLD LOVENOX TONIGHT AND CHECK CBC IN AM.
[2018-12-13 23:19] VITALS: BP 110/63
[2018-12-13] MEDS: CEFTRIAXONE SODIUM 1 GM IVP SCH (23:21)
[2018-12-13] MEDS: HONEY 1 APPL/ML TUBE TP SCH (23:27)
[2018-12-14 03:52] VITALS: BP 126/75
[2018-12-14 05:10] LABS: MEAN CORPUSCULAR HGB CONC 34.4 g/dL (32.0-36.0); MEAN CORPUSCULAR VOLUME 96.1 fL (79-99); NUCLEATED RED BLOOD CELLS 0.1 % (0.0-0.19); PLATELET COUNT (AUTO) 135 K/uL (130-400); RED BLOOD CELL COUNT(AUTO) 3.12 MIL/uL (4.50-6.20); RED CELL DISTRIBUTION WIDTH 14.5 % (11.0-15.5); WHITE BLOOD COUNT (AUTO) 6.1 K/uL (4.8-10.8)
[2018-12-14] MEDS: INSULIN HUMULIN R 100 UNIT/ML 3ML SQ SCH ×4 (07:30→20:29)
[2018-12-14 08:26] VITALS: BP 115/68
[2018-12-14 08:30] LABS: POTASSIUM 4.1 mmol/L (3.5-5.1)
[2018-12-14] MEDS: MULTIVITAMINS W-IRON 50 ML DROPS PO SCH (09:00)
[2018-12-14] MEDS: MEGESTROL 400 MG/10 ML UDCUP PO SCH ×2 (09:00)
[2018-12-14] MEDS: SODIUM CHLORIDE 1,000 MG TAB PO SCH (11:03)
[2018-12-14] MEDS: THIAMINE HCL 100 MG TABLET PO SCH (11:03)
[2018-12-14] MEDS: FOLIC ACID 1 MG TABLET PO SCH (11:04)
[2018-12-14] MEDS: FAMOTIDINE 20MG TAB 20 MG TAB PO SCH (11:04)
[2018-12-14] MEDS: ZINC OXIDE OINT 56.7 GM TP SCH ×2 (11:06→20:37)
[2018-12-14] MEDS: MIDODRINE HCL 5 MG TABLET PO SCH ×3 (11:10→20:32)
[2018-12-14 11:48] VITALS: BP 121/73
--- NOTE | 2018-12-14 13:08 | NUR ---
[place] [facility] [facility] [place] WAS EVALUATED THIS MORNING AND DECLINED BY [facility] THEIR MD STATES THERE IS NO CLEAR GOOD DISPOSITION. REACHED OUT TO DIRECTOR FOR GUIDANCE, WILL CALL [facility] TO DISCUSS OPTIONS PT HAS REPEATEDLY SAID HE DOES NOT WANT TO USE HIS MEDICARE
[2018-12-14 16:30] VITALS: BP 122/68
--- NOTE | 2018-12-14 17:00 | NUR ---
REFERRAL TO [facility] COMPLETE REFERAL TO [facility], BASSEM/CHOICE PKT SENT, MENDEZ CALLED TO COME EVAL, POST EVAL STATES YES [facility] SHOULD TAKE HIM NO ORDERS FOR DISCHARGE, WILL FOLLOW UP IN AM
[2018-12-14 19:12] VITALS: BP 104/59
[2018-12-14] MEDS: ENOXAPARIN SODIUM 30 MG/0.3 ML SQ SCH (20:32)
[2018-12-14] MEDS: HONEY 1 APPL/ML TUBE TP SCH (20:37)
[2018-12-14] MEDS: CEFTRIAXONE SODIUM 1 GM IVP SCH (22:45)
[2018-12-14 23:00] VITALS: BP 116/66
[2018-12-15 03:28] VITALS: BP 119/68
[2018-12-15] MEDS: INSULIN HUMULIN R 100 UNIT/ML 3ML SQ SCH ×2 (05:36→11:30)
[2018-12-15] MEDS ORDERED: MULTIVITAMINS W-IRON 50 ML DROPS PO SCH (09:00)
--- NOTE | 2018-12-15 09:30 | NUR ---
CHART IS TAGGED W ACCEPTANCE AT [facility] AND [facility] AWARE Addendum: 12/16/18 at 0900 by MINERVA IRBY RN CM Amended: Links added.
[2018-12-15] MEDS: SODIUM CHLORIDE 1,000 MG TAB PO SCH (09:41)
[2018-12-15] MEDS: FAMOTIDINE 20MG TAB 20 MG TAB PO SCH (09:41)
[2018-12-15] MEDS: MIDODRINE HCL 5 MG TABLET PO SCH ×2 (09:41→14:43)
[2018-12-15] MEDS: THIAMINE HCL 100 MG TABLET PO SCH (09:41)
[2018-12-15] MEDS: MEGESTROL 400 MG/10 ML UDCUP PO SCH (09:42)
[2018-12-15] MEDS: FOLIC ACID 1 MG TABLET PO SCH (09:42)
[2018-12-15] MEDS: ZINC OXIDE OINT 56.7 GM TP SCH (09:45)
[2018-12-15 12:09] VITALS: BP 122/76
--- NOTE | 2018-12-15 14:50 | NUR ---
DISCHARGE DISCHARGE TEACHING DONE WITH PATIENT USING TEACHBACK METHOD, VERBALIZED UNDERSTANDING. NO NOTED SOB OR DISTRESS. DRESSING TO RIGHT ELBOW CHANGED. IV TO LEFT WRIST FLUSHING AND PATENT. NO NEW PRESCRIPTIONS. REPORT CALLED TO SNF. PENDING TO BE PICKED UP BY EZIO AMES
--- NOTE | 2018-12-15 16:34 | NUR ---
KIARA F/U Note Pt tolerating Current diet order with no complaint of GI distress. PO intake at 100%. Pt LBM 12/13/18. Pt reports allergy to melon. Pt monitored labs: Na 131, Glu 108, Alb 2.1, Mg 3.20, Ca 8.6. RD to continue to monitor. Please notify as nutrition concerns arise. Thank you. Addendum: 12/15/18 at [address] Amended: Links added.
== END 2018-12-15 17:13 | DRG 871 ==
LOC: EDH 20:11 → EDHIP 12-08 00:36 → 2DH 12-08 02:13 → 4AH 12-12 18:26
PROVIDERS: ADMIT Internal Medicine; ATTEND Internal Medicine
DX: A41.9 Sepsis, unspecified organism (principal); N17.0 Acute kidney failure with tubular necrosis; E87.2 Acidosis; E87.1 Hypo-osmolality and hyponatremia; M62.82 Rhabdomyolysis; E44.0 Moderate protein-calorie malnutrition; N39.0 Urinary tract infection, site not specified; E86.0 Dehydration; E11.21 Type 2 diabetes mellitus with diabetic nephropathy; E11.649 Type 2 diabetes mellitus with hypoglycemia without coma; E83.42 Hypomagnesemia; E87.5 Hyperkalemia; F10.229 Alcohol dependence with intoxication, unspecified; G62.1 Alcoholic polyneuropathy; I10 Essential (primary) hypertension; I48.91 Unspecified atrial fibrillation; M19.90 Unspecified osteoarthritis, unspecified site; M48.00 Spinal stenosis, site unspecified; M85.80 Other specified disorders of bone density and structure, unspecified site; S50.811A Abrasion of right forearm, initial encounter; Z60.2 Problems related to living alone; W19.XXXA Unspecified fall, initial encounter; Z68.20 Body mass index [BMI] 20.0-20.9, adult; Y93.89 Activity, other specified; Y92.098 Other place in other non-institutional residence as the place of occurrence of the external cause; Y99.8 Other external cause status; Z95.0 Presence of cardiac pacemaker; Z82.5 Family history of asthma and other chronic lower respiratory diseases; Z82.0 Family history of epilepsy and other diseases of the nervous system
CPT/HCPCS: 36415; 36600; 70450; 71045; 72128; 72131; 80048; 80053; 80305; 81001; 82010; 82140; 82550; 82803; 82948; 83036; 83540; 83550; 83605; 83735; 83880; 84100; 84295; 84484; 85025; 85027; 85610; 85730; 87040; 93005; 97039; 99291; G0378; G0480; J0456; J0696; J1650; J1815; J3411; J3475; J3490; J7030

== ENCOUNTER 2019-11-20 02:09 | Emergency (ER) | payer OTHER, MEDICARE ==
[~2019-11-20 02:09] MED LIST changes: -AEC81 PO; -ATOR20TA65 PO; -CALC600T12 PO; +CALC600T15 PO; -CARV6.2579 PO; +ERGO500014 PO; -FURO20TA6 PO; -LEVO500T89 PO; -METF-444 PO; +MULT1CAP32 PO; -SPIR25TA PO; -SPIR25TA6 PO; +VITA1CAP PO
[2019-11-20 02:28] LABS: BASOPHILS % (AUTO) 0.1 % (0.0-5.0); EOSINOPHILS % (AUTO) 0.1 % (0.0-8.0); HEMATOCRIT 21.3 % (42-54); LYMPHOCYTES % (AUTO) 8.6 % (21.0-51.0); MEAN CORPUSCULAR HEMOGLOBIN 30.3 pg (27.0-33.0); MEAN CORPUSCULAR HGB CONC 37.1 g/dL (32.0-36.0); MEAN CORPUSCULAR VOLUME 81.6 fL (79-99); MONOCYTES % (AUTO) 10.6 % (3.0-13.0); NEUTROPHILS % (AUTO) 80.2 % (40.0-77.0); PLATELET COUNT (AUTO) 202 K/uL (130-400); RED BLOOD CELL COUNT(AUTO) 2.61 MIL/uL (4.50-6.20); RED CELL DISTRIBUTION WIDTH 13.2 % (11.0-15.5); WHITE BLOOD COUNT (AUTO) 13.4 K/uL (4.8-10.8)
[2019-11-20 02:43] LABS: ALBUMIN 3.1 g/dL (3.5-5.0); BILIRUBIN,TOTAL 1.1 mg/dL (0.2-1.0); CREATININE 1.6 mg/dL (0.5-1.5); POTASSIUM 5.8 mmol/L (3.5-5.1); TOTAL PROTEIN, SERUM 6.7 g/dL (6.0-8.3)
[2019-11-20] MEDS ORDERED: ONDANSETRON HCL 4 MG/2 ML VIAL ONE (02:43)
[2019-11-20] MEDS ORDERED: MORPHINE SULFATE 4 MG/1ML SYG ONE (02:44)
[2019-11-20] MEDS ORDERED: LIDOCAINE HCL 2% JELLY 5 ML ONE (02:44)
[2019-11-20 03:33] LABS: CREATININE 1.7 mg/dL (0.5-1.5)
[2019-11-20] MEDS ORDERED: SODIUM POLYSTYRENE SULFONATE 15 GM/60 ML ML ONE (03:47)
[2019-11-20] MEDS ORDERED: CALCIUM GLUCONATE 1 GM/10 ML VIAL IV ONE (03:48)
[2019-11-20] MEDS ORDERED: SODIUM BICARB 50MEQ 50ML VIAL ONE (03:48)
[2019-11-20] MEDS ORDERED: DEXTROSE 50%-WATER 50 ML DISP.SYRIN IV ONE (03:49)
[2019-11-20] MEDS ORDERED: INSULIN HUMULIN R 100 UNIT/ML 3ML ONE (03:50)
[2019-11-20 04:39] LABS: APPEARANCE,URINE Cloudy (CLEAR); BILIRUBIN,URINE Small (NEGATIVE); COLOR,URINE Red (YELLOW); GLUCOSE, URINE (UA) Negative (NEGATIVE); KETONES,URINE Negative (NEGATIVE); LEUKOCYTE ESTERASE ,URINE Large (NEGATIVE); NITRATE,URINE Positive (NEGATIVE); OCCULT BLOOD,URINE Small (NEGATIVE); PROTEIN,URINE POS 1+ mg/dL (NEGATIVE); UROBILINOGEN,URINE 0.2 mg/dL (0.2-1.0)
[2019-11-20] MEDS ORDERED: SODIUM CHLORIDE 0.9% 500ML 500 ML IV ONE (04:45)
[2019-11-20 05:01] LABS: BASOPHILS % (AUTO) 0.1 % (0.0-5.0); EOSINOPHILS % (AUTO) 0.1 % (0.0-8.0); LYMPHOCYTES % (AUTO) 6.5 % (21.0-51.0); MEAN CORPUSCULAR HEMOGLOBIN 29.6 pg (27.0-33.0); MEAN CORPUSCULAR VOLUME 82.2 fL (79-99); MONOCYTES % (AUTO) 10.7 % (3.0-13.0); NEUTROPHILS % (AUTO) 82.2 % (40.0-77.0); PLATELET COUNT (AUTO) 140 K/uL (130-400); RED BLOOD CELL COUNT(AUTO) 2.47 MIL/uL (4.50-6.20); RED CELL DISTRIBUTION WIDTH 13.1 % (11.0-15.5); WHITE BLOOD COUNT (AUTO) 12.7 K/uL (4.8-10.8)
[2019-11-20 05:08] LABS: BACTERIA,URINE Many /HPF (None Seen); RBC,URINE TNTC /HPF (0-1); WBC,URINE TNTC /HPF (0-1)
[2019-11-20 05:14] LABS: INR 1.27 (0.85-1.15); PARTIAL THROMBOPLASTIN TIME 31.7 SEC (26.3-35.5); PROTHROMBIN TIME 13.6 SEC (9.6-11.6)
[2019-11-20 05:15] LABS: HEMATOCRIT 20.3 % (42-54)
[2019-11-20] MEDS ORDERED: CEFTRIAXONE SODIUM 1 GM ONE (05:20)
[2019-11-20] MEDS ORDERED: SODIUM CHLORIDE 0.9% 100 ML IV ONE (05:20)
== END 2019-11-20 11:45 | disposition short-term general hospital (02) ==
LOC: EDH 02:09
DX: R31.9 Hematuria, unspecified (principal); R33.9 Retention of urine, unspecified; D64.9 Anemia, unspecified; I48.91 Unspecified atrial fibrillation
CPT/HCPCS: 36415; 80048; 80053; 81001; 82948; 85025 ×2; 85610; 85730; 86850; 86900; 86901; 86922; 87040; 87077; 87088; 87186; 87426; 93005 ×2; 96374; 96375; 99285; J0610; J0696; J1815; J2270; J2405; J3490; J7040; J7070; P9016; U0003